=== PATIENT | male | born 1980 | race Caucasian/White ===

== ENCOUNTER 2021-03-20 16:46 | Emergency (ER) | payer MEDICAID ==
[~2021-03-20] VITALS: Ht 162.6 cm; Wt 113.4 kg
[2021-03-20 17:01] VITALS: BP 156/88
--- NOTE | 2021-03-20 17:08 | NUR ---
Patient ambulated to bed 01 with steady/even gait.
--- NOTE | 2021-03-20 17:11 | NUR ---
NEFTALI Coery is evaluating patient at bedside.
--- NOTE | 2021-03-20 17:30 | NUR ---
40 y/o M coming in from home with c/c bilateral eye pain. Patient presents A&Ox4, ambulatory, and states he was at home and woke up with right eye itchiness on 03/17/2021. Patient reports yesterday, the swelling/redness/itchiness spread to his left eye. Patient states he rubbed both eyes and presents with watery eyes, reddened conjunctiva. Pt reports using Clear Eyes drops without relief. Patient states pain to right eye upon blinking or applying pressure; reports /, "sharp/intermittent, non-radiating pain. Patient states associated blurry vision, denies any recent use of eye contacts or glasses. Patient denies any other medical complaints at this time. Pt placed onto blood pressure cuff, pulse ox. Bed locked in lowest position, side rails x 1, call light in reach. PMH/Meds/Sx: Denies NKA
[2021-03-20] MEDS ORDERED: OFLOS BOTH EYES (17:37)
--- NOTE | 2021-03-20 17:47 | NUR ---
Patient discharged with v/s stable. Written and verbal after care instructions given and explained. Patient alert, oriented and verbalized understanding of instructions. Ambulatory with steady gait. All questions addressed prior to discharge. ID band removed. Patient advised to follow up with PMD. Rx of Ofloxacin 0.3% given. Patient educated on indication of medication including possible reaction and side effects. Opportunity to ask questions provided and answered.
== END 2021-03-20 17:47 | disposition home or self-care (01) ==
LOC: MED 16:46
DX: H10.33 Unspecified acute conjunctivitis, bilateral (principal); Z79.899 Other long term (current) drug therapy
CPT/HCPCS: 99283